=== PATIENT | male | born 1995 | race Caucasian/White ===

== ENCOUNTER 2024-02-12 20:06 | Emergency (ER) | payer OTHER ==
[2024-02-12 21:07] VITALS: BP 135/86
== END 2024-02-12 21:07 | disposition home or self-care (01) ==
LOC: ED 20:06
DX: S61.216A Laceration without foreign body of right little finger without damage to nail, initial encounter (principal); Z23 Encounter for immunization; W26.8XXA Contact with other sharp object(s), not elsewhere classified, initial encounter; Y93.G1 Activity, food preparation and clean up
CPT/HCPCS: 90715

== ENCOUNTER → 2024-06-13 | Outpatient (CLI) | payer OTHER | LOC: RAD 11:00 | DX: M54.50 Low back pain, unspecified (principal) ==

== ENCOUNTER → 2024-07-10 | Outpatient (CLI) | payer OTHER ==
[2024-07-10 15:47] LABS: EOS # 0.02 K/mm3 (0.04-0.40); EOS % 0.5 % (0.0-4.0); HEMATOCRIT 43.2 % (42.0-52.0); HEMOGLOBIN 14.4 g/dL (13.5-18.0); MEAN CELL VOLUME 86 fl (78-100); MEAN CORPUSCULAR HEMOGLOBIN 29 pg (27-31); MEAN CORPUSCULAR HGB CONC 33 g/dL (33-37); MEAN PLATELET VOLUME 9.8 fl (7.4-10.4); MONO # 0.76 K/mm3 (0.20-0.80); NEU # 2.01 K/mm3 (1.40-6.50); PLATELET COUNT 237 K/mm3 (130-400); RED BLOOD COUNT 5.02 M/mm3 (4.20-5.60); RED CELL DISTRIBUTION WIDTH 12.7 % (11.5-14.5)
[2024-07-10 15:53] LABS: ALBUMIN 4.7 g/dL (3.5-5.0)
[2024-07-10 15:54] LABS: CALCIUM 9.8 mg/dL (8.3-10.5)
[2024-07-10 15:55] LABS: TOTAL PROTEIN 7.9 g/dL (6.4-8.3)
[2024-07-10 15:57] LABS: TOTAL BILIRUBIN 0.2 mg/dL (0.2-1.2)
== END ==
LOC: LAB 15:18
PROVIDERS: Family Medicine
DX: I10 Essential (primary) hypertension (principal); E78.5 Hyperlipidemia, unspecified; E03.9 Hypothyroidism, unspecified